=== PATIENT | female | born 1975 | race Caucasian/White ===

== ENCOUNTER 2018-02-19 13:55 | Emergency (ER) | payer OTHER, SELFPAY ==
[2018-02-19 13:59] VITALS: BP 112/70; PULSE 63; RESP 16; TEMP 36.6; O2SAT 100; BMI 24.3
--- NOTE | 2018-02-19 14:01 | ED.LOWEXIN ---
HPI - Extremity Injury (Lower) General Chief Complaint: Extremity Injury, Lower Stated Complaint: THINKS SHE BROKE HER LEFT ANKLE Time Seen by Provider: 02/19/18 14:01 Related Data Home Medications Medication Instructions Recorded Confirmed LEVOTHYROXINE SODIUM (#SYNTHROID) 0.125 mg PO Q DAY #0 07/21/11 ibuprofen 600 mg PO Q6HP PRN #0 05/31/13 Discharge Plan Departure Prescriptions: No Action LEVOTHYROXINE SODIUM (#SYNTHROID) 0.125 mg PO Q DAY Qty: 0 RF: 0 ibuprofen 600 MG tablet 600 mg PO Q6HP PRNQty: 0 RF: 0
--- NOTE | 2018-02-19 14:05 | ED.LOWEXIN ---
HPI - Extremity Injury (Lower) <LACHELLE Benjamin - Last Filed: 02/19/18 20:51> General Chief Complaint: Extremity Injury, Lower Stated Complaint: THINKS SHE BROKE HER LEFT ANKLE Time Seen by Provider: 02/19/18 14:01 History of Present Illness HPI Narrative: 42-year-old female here for complaint of pain into her left ankle. She states that she tripped while she was walking a dog causing her to roll her ankle pain into the lateral aspect of the ankle and swelling along the lateral malleolus. She reports decreased ability to bear weight due to pain into the ankle area. She denies any other injuries. No head injury. No loss of consciousness. Increased pain with motion of the left ankle. She took Tylenol and Motrin prior to arrival. The incident happened an hour prior to arrival. No other concerns or complaints. MD complaint: ankle injury Related Data Home Medications Medication Instructions Recorded Confirmed levothyroxine [Synthroid] 1 tab PO DAILY 02/19/18 02/19/18 lorazepam 1 - 2 tab PO PRN PRN 02/19/18 02/19/18 Previous Rx's Medication Instructions Recorded hydrocodone-acetaminophen [[place]] 1 tab PO Q6H PRN #10 tab 02/19/18 Allergies Allergy/AdvReac Type Severity Reaction Status Date / Time No Known Drug Allergies Allergy Verified 02/19/18 14:05 Review of Systems <LACHELLE Benjamin - Last Filed: 02/19/18 20:51> Constitutional Denies chills, Denies fever(s), Denies lethargy and Denies weakness Eyes Denies change in vision, Denies eye discharge, Denies irritation and Denies loss of vision Cardiovascular Denies chest pain, Denies irregular heart rhythm, Denies lightheadedness, Denies palpitations, Denies dyspnea, Denies dyspnea on exertion and Denies orthopnea Respiratory Denies cough, Denies dyspnea, Denies dyspnea on exertion and Denies wheezing Gastrointestinal Gastrointestinal: Denies abdominal pain, Denies change in bowel habits, Denies diarrhea, Denies nausea and Denies vomiting Genitourinary Denies hematuria, Denies flank pain, Denies urinary incontinence and Denies urinary urgency Musculoskeletal Comments: Left ankle pain and swelling Integumentary/Breasts Denies pruritus, Denies erythema, Denies rash and Denies wounds Neurologic Denies confusion, Denies loss of vision and Denies weakness Psychiatric Denies anxiety, Denies confusion, Denies depression, Denies homicidal ideation and Denies suicidal ideation Endocrine Denies palpitations Allergic/Immunologic Denies wheezing Exam <LACHELLE Benjamin - Last Filed: 02/19/18 20:51> Initial Vital Signs Initial Vital Signs: Vital Signs Temperature 97.9 F 02/19/18 13:59 Pulse Rate 63 02/19/18 13:59 Respiratory Rate 16 02/19/18 13:59 Blood Pressure 112/70 02/19/18 13:59 Pulse Oximetry 100 02/19/18 13:59 Const General: cooperative and well developed Nutritional Appearance: well nourished Orientation: alert, awake, oriented x3 and not confused HENNY Mouth: oral mucosae normal, oropharynx normal and moist mucous membranes Teeth and gingiva: dentition normal Throat: posterior oropharynx normal Eyes Conjunctivae: conjunctivae normal Sclera: sclerae normal Pupils: PERRL EOM: EOM intact bilaterally Resp Effort & Inspection: normal respiratory effort, able to speak in complete sentences, no respiratory distress and no use of accessory muscles Auscultation: clear to auscultation bilaterally, no rales, no rhonchi and no wheezes Cardio Rate: regular rate Rhythm: regular rhythm Heart Sounds: no click, no gallops, no murmurs and no rubs Pulses: normal peripheral pulses Skin General: no rashes or lesions noted, No jaundice and No petechiae Extrem Other: Left ankle with swelling into the lateral malleolus. No ecchymosis. No deformities. Distal sensation is intact. Distal range of motion is intact. Distal pulses are intact. <Kip Ugalde DO - Last Filed: 02/22/18 08:37> Initial Vital Signs Initial Vital Signs: Vital Signs Temperature 97.9 F 02/19/18 13:59 Pulse Rate 63 02/19/18 13:59 Respiratory Rate 16 02/19/18 13:59 Blood Pressure 112/70 02/19/18 13:59 Pulse Oximetry 100 02/19/18 13:59 Course <LACHELLE Benjamin - Last Filed: 02/19/18 20:51> Orders Ordered: ED Orders 02/19/18 14:05 XR ankle LT min 3V Stat Vital Signs - 8 hr 02/19/18 13:59 06/27/18 14:30 02/19/18 14:34 Temperature 97.9 F 100.2 F H 97.9 F Pulse Rate 63 75 63 Respiratory Rate 16 15 16 Blood Pressure 112/70 112/70 Blood Pressure [Left Arm] 127/44 H Pulse Oximetry 100 100 100 <Kip Ugalde DO - Last Filed: 02/22/18 08:37> Orders Ordered: ED Orders 02/19/18 14:05 XR ankle LT min 3V Stat Vital Signs - 8 hr 02/19/18 13:59 02/19/18 14:30 02/19/18 14:34 Temperature 97.9 F 100.2 F H 97.9 F Pulse Rate 63 75 63 Respiratory Rate 16 15 16 Blood Pressure 112/70 112/70 Blood Pressure [Left Arm] 127/44 H Pulse Oximetry 100 100 100 [facility] - Extremity Injury (Lower) <LANIE BenjaminP - Last Filed: 02/19/18 20:51> Imaging Data left ankle : Radiologist's impression: PROCEDURE: XR ANKLE LT MIN 3V INDICATIONS: injury, pain TECHNIQUE: 3 views of the ankle were acquired. COMPARISON: None. FINDINGS: Bones: There is a nondisplaced fracture in the inferior tip of the fibula with surrounding soft tissue edema. A corticated ossicle below the lateral malleolus is likely sequela of old injury. There is mild lateral tilt of tibial plafond. Soft tissues: Trace tibiotalar joint effusion. Achilles tendon appears normal. Soft tissue swelling over the lateral malleolus. IMPRESSION: 1. Acute nondisplaced fracture of the inferior tip of fibula. 2. A corticated ossicle distal to the lateral malleolus is noted, likely sequela of what injury. Dictated by: Anel Grullon M.D. on 02/19/2018 at 14:26 Approved by: Anel Grullon M.D. on 02/19/2018 at 14:30 [facility] Narrative Medical decision making narrative: X-ray the left ankle shows a fracture to the distal fibula with the distal tip being displaced. She is placed in a combination posterior and stirrup splint. She is given crutches for nonweightbearing. She is referred Orthopedics she is to call the office tomorrow to schedule follow-up appointment here in the next few days. [id number] Tylenol or Motrin as needed for any discomfort. Ice and elevation to help with swelling. Small amount of [place] is prescribed for breakthrough pain and use as directed. For any worsening symptoms return to the emergency room. Follow up with primary care provider. Discharge Plan Departure Patient Disposition: Home, Self-Care Clinical Impression: Ankle fracture Discharge Date/Time: 02/19/18 15:16 Interventions: ED Discharge Assessment Last Done: 02/19/18 15:15 Instructions: DI for Ankle Fracture Activity Restrictions/Additional Instructions: X-ray the left ankle shows a fracture to the distal fibula with the distal tip being displaced. You are placed in a splint for comfort and support along with crutches for nonweightbearing use as directed. You are referred to Orthopedics she is to call the office tomorrow to schedule follow-up appointment in the next few days. [id number] Tylenol or Motrin as needed for any discomfort. Ice and elevation to help with swelling. Small amount of [place] is prescribed for breakthrough pain and use as directed. For any worsening symptoms return to the emergency room. Follow up with primary care provider. Prescriptions: New hydrocodone-acetaminophen [[place]] 5-325 mg tablet 1 tab PO Q6H PRN (Reason: pain) Qty: 10 RF: 0 No Action lorazepam 0.5 mg tablet 1 - 2 tab PO PRN PRN (Reason: travel anxiety) RF: 0 levothyroxine [Synthroid] 150 mcg tablet 1 tab PO DAILY RF: 0 Referrals: Vicky Cochran MD [Physician] - Alix Rinaldi MD [Primary Care Provider] - <Kip Ugalde DO - Last Filed: 02/22/18 08:37> Cosign ED Attending Delgado Attestation: I was available for consultation during this patient's emergency department encounter
[2018-02-19 14:30] VITALS: BP 127/44; PULSE 75; RESP 15; TEMP 37.9; O2SAT 100
[2018-02-19 14:34] VITALS: BP 112/70; PULSE 63; RESP 16; TEMP 36.6; O2SAT 100; BMI 24.3
--- NOTE | 2018-02-19 15:14 | PC.NURSE ---
Short leg splint and stirrup splints with padding applied - approved by [employer] Paulson
== END 2018-02-19 15:16 | disposition home or self-care (01) ==
PROVIDERS: Emergency Provider Nurse Practitioner Family; PCP Internal Medicine
DX: S82.892A Other fracture of left lower leg, initial encounter for closed fracture (principal); W18.40XA Slipping, tripping and stumbling without falling, unspecified, initial encounter
CPT/HCPCS: 29515; 73610; 99282; 99283

== ENCOUNTER → 2018-07-29 09:33 | Outpatient (CLI) | payer OTHER, SELFPAY | DX: Z23 Encounter for immunization (principal) | CPT/HCPCS: 90471; 90686 ==

== ENCOUNTER → 2020-02-25 13:39 | Outpatient (CLI) | payer OTHER, SELFPAY ==
--- NOTE | 2020-02-25 | DI.MG.S_ITS ---
BILATERAL DIGITAL SCREENING MAMMOGRAM 3D/2D WITH CAD: 02/25/2020 CLINICAL: Routine screening. Comparison is made to exams dated: 08/31/2018 mammogram, 06/27/2017 mammogram, and 01/26/2015 mammogram - outside location. There are scattered fibroglandular elements in both breasts. Current study was also evaluated with a Computer Aided Detection (CAD) system. No significant masses, calcifications, or other findings are seen in either breast. There has been no significant interval change. IMPRESSION: NEGATIVE There is no mammographic evidence of malignancy. A 1 year screening mammogram is recommended. NOTE: For mammograms, a report in lay terms will be sent to the patient. Approximately 15% of breast malignancies will not be visualized mammographically. In the management of a palpable breast mass, a negative mammogram must not discourage biopsy of a clinically suspicious lesion. Electronically Signed By: Jhoan nguyen/tomas:02/25/2020 19:02:41 letter sent: Normal Exam ACR BI-RADS Category 1: Negative 3341F
== END ==
PROVIDERS: PCP Internal Medicine; Referring Provider Internal Medicine; Visit Provider Internal Medicine
DX: Z12.31 Encounter for screening mammogram for malignant neoplasm of breast (principal)
CPT/HCPCS: 77063; 77067

== ENCOUNTER → 2021-04-22 13:26 | Outpatient (CLI) | payer OTHER, SELFPAY ==
--- NOTE | 2021-04-22 13:26 | DI.MG.S_ITS ---
BILATERAL DIGITAL SCREENING MAMMOGRAM 3D/2D WITH CAD: 04/22/2021 CLINICAL: Routine screening. Family history of breast cancer. Comparison is made to exams dated: 02/25/2020 mammogram - [facility], 08/31/2018 mammogram, and 06/27/2017 mammogram - outside location. There are scattered fibroglandular elements in both breasts. Current study was also evaluated with a Computer Aided Detection (CAD) system. No significant masses, calcifications, or other findings are seen in either breast. There has been no significant interval change. IMPRESSION: NEGATIVE There is no mammographic evidence of malignancy. A 1 year screening mammogram is recommended. This exam was interpreted at Station ID: [id number]. NOTE: For mammograms, a report in lay terms will be sent to the patient. Approximately 15% of breast malignancies will not be visualized mammographically. In the management of a palpable breast mass, a negative mammogram must not discourage biopsy of a clinically suspicious lesion. Electronically Signed By: Kristofer Xiao M.D., jr/tomas:04/24/2021 09:42:11 letter sent: Normal Exam ACR BI-RADS Category 1: Negative 3341F
== END ==
PROVIDERS: PCP Family Medicine; Referring Provider Family Medicine; Visit Provider Family Medicine
DX: Z12.31 Encounter for screening mammogram for malignant neoplasm of breast (principal); Z80.3 Family history of malignant neoplasm of breast
CPT/HCPCS: 77063; 77067

== ENCOUNTER → 2022-06-28 16:19 | Outpatient (CLI) | payer OTHER, SELFPAY ==
--- NOTE | 2022-06-28 16:21 | DI.MG.S_ITS ---
BILATERAL DIGITAL SCREENING MAMMOGRAM 3D/2D WITH CAD: 06/28/2022 CLINICAL: Routine screening. Family history of breast cancer. Comparison is made to exams dated: 04/22/2021 mammogram, 02/25/2020 mammogram - [facility], and 08/31/2018 mammogram - outside location. There are scattered areas of fibroglandular density in both breasts (category b / 25%-50% glandular tissue). Current study was also evaluated with a Computer Aided Detection (CAD) system. No significant masses, calcifications, or other findings are seen in either breast. There has been no significant interval change. IMPRESSION: NEGATIVE There is no mammographic evidence of malignancy. A 1 year screening mammogram is recommended. Based on Tyrer-Cuzick model (a risk assessment model), the patient's lifetime risk is 20.9% and her 10 year risk is 4.6%. If a patient has an elevated risk, a more comprehensive evaluation should be considered and/or a referral to a genetic counselor. The [place] [employer], [employer], and NCCN Guidelines advise the consideration of Breast MRI as an adjunct to screening mammography in patients whose Lifetime risk to develop breast cancer is 20% or higher. This exam was interpreted at Station ID: [id number]. NOTE: For mammograms, a report in lay terms will be sent to the patient. Approximately 15% of breast malignancies will not be visualized mammographically. In the management of a palpable breast mass, a negative mammogram must not discourage biopsy of a clinically suspicious lesion. Electronically Signed By: Cole troncoso/tomas:06/29/2022 12:00:33 letter sent: Normal Exam ACR BI-RADS Category 1: Negative 3341F
== END ==
PROVIDERS: PCP Family Medicine; Referring Provider Family Medicine; Visit Provider Family Medicine
DX: Z12.31 Encounter for screening mammogram for malignant neoplasm of breast (principal); Z80.3 Family history of malignant neoplasm of breast
CPT/HCPCS: 77063; 77067

== ENCOUNTER → 2023-08-15 15:15 | Outpatient (CLI) | payer OTHER, SELFPAY ==
--- NOTE | 2023-08-15 | DI.MG.S_ITS ---
BILATERAL DIGITAL SCREENING MAMMOGRAM 3D/2D WITH CAD: 08/15/2023 CLINICAL: Routine screening. Family history of breast cancer. Comparison is made to exams dated: 06/28/2022 mammogram, 04/22/2021 mammogram, and 02/25/2020 mammogram - [facility]. There are scattered areas of fibroglandular density in both breasts (category b / 25%-50% glandular tissue). Current study was also evaluated with a Computer Aided Detection (CAD) system. No significant masses, calcifications, or other findings are seen in either breast. There has been no significant interval change. IMPRESSION: NEGATIVE There is no mammographic evidence of malignancy. A 1 year screening mammogram is recommended. Based on Tyrer-Cuzick model (a risk assessment model), the patient's lifetime risk is 21.0% and her 10 year risk is 4.9%. If a patient has an elevated risk, a more comprehensive evaluation should be considered and/or a referral to a genetic counselor. The [place] [employer], [employer], and NCCN Guidelines advise the consideration of Breast MRI as an adjunct to screening mammography in patients whose Lifetime risk to develop breast cancer is 20% or higher. This exam was interpreted at Station ID: [id number]. NOTE: For mammograms, a report in lay terms will be sent to the patient. Approximately 15% of breast malignancies will not be visualized mammographically. In the management of a palpable breast mass, a negative mammogram must not discourage biopsy of a clinically suspicious lesion. Electronically Signed By: Jhoan nguyen/tomas:08/16/2023 10:37:10 letter sent: Normal Exam ACR BI-RADS Category 1: Negative 3341F
== END ==
PROVIDERS: PCP Family Medicine; Referring Provider Family Medicine; Visit Provider Family Medicine
DX: Z12.31 Encounter for screening mammogram for malignant neoplasm of breast (principal); Z80.3 Family history of malignant neoplasm of breast
CPT/HCPCS: 77063; 77067

== ENCOUNTER → 2024-09-01 07:47 | Outpatient (CLI) | payer OTHER, SELFPAY ==
--- NOTE | 2024-09-01 | DI.MG.S_ITS ---
BILATERAL DIGITAL SCREENING MAMMOGRAM 3D/2D WITH CAD: 09/01/2024 CLINICAL: Routine screening. Family history of breast cancer. Comparison is made to exams dated: 08/15/2023 mammogram, 06/28/2022 mammogram, and 04/22/2021 mammogram - [facility]. There are scattered areas of fibroglandular density (category b / 25%-50% glandular tissue). Current study was also evaluated with a Computer Aided Detection (CAD) system. No significant masses, calcifications, or other findings are seen in either breast. There has been no significant interval change. IMPRESSION: NEGATIVE There is no mammographic evidence of malignancy. A 1 year screening mammogram is recommended. Based on Tyrer-Cuzick model (a risk assessment model), the patient's lifetime risk is 20.9% and her 10 year risk is 5.4%. If a patient has an elevated risk, a more comprehensive evaluation should be considered and/or a referral to a genetic counselor. The [place] [employer], [employer] [employer], and NCCN Guidelines advise the consideration of Breast MRI as an adjunct to screening mammography in patients whose Lifetime risk to develop breast cancer is 20% or higher. This exam was interpreted at Station ID: [id number]. NOTE: For mammograms, a report in lay terms will be sent to the patient. Approximately 15% of breast malignancies will not be visualized mammographically. In the management of a palpable breast mass, a negative mammogram must not discourage biopsy of a clinically suspicious lesion. Electronically Signed By: Toño johnson/tomas:09/01/2024 14:58:04 letter sent: Normal Exam ACR BI-RADS Category 1: Negative
== END ==
DX: Z12.31 Encounter for screening mammogram for malignant neoplasm of breast (principal); Z80.3 Family history of malignant neoplasm of breast
CPT/HCPCS: 77063; 77067